=== PATIENT | male | born 1960 | race Caucasian/White ===

== ENCOUNTER 2022-06-29 07:27 | Day surgery (SDC) | payer OTHER ==
[2022-06-25 14:24] VITALS: BMI 27.8
[~2022-06-29 07:27] MED LIST: EPINEPHrine 0.3 MG in Ophthalmic Irrigation Solution 500 ML IRR SCH
[2022-06-29] MEDS ORDERED: Cyclopentolate 1% Opth Drop 2 ML BOT ONE (07:58)
[2022-06-29] MEDS ORDERED: Phenylephrine 2.5% Ophth Soln 5 ML BOT ONE (07:58)
[2022-06-29] MEDS ORDERED: Bupivacaine 0.75% 10 ML VIAL ONE (09:35)
[2022-06-29] MEDS ORDERED: Indocyanine Green 25 MG/10 ML VIAL ONE (09:35)
[2022-06-29] MEDS ORDERED: Lidocaine 1% PF 5 ML VIAL ONE (09:35)
[2022-06-29] MEDS ORDERED: CEFAZOLIN 1 GM VIAL ONE (09:35)
[2022-06-29] MEDS ORDERED: Maxitrol 0.1% Opth Oint 3.5 GM TUBE ONE (09:35)
[2022-06-29] MEDS ORDERED: PROPOFOL 200 MG/20 ML VIAL ONE (09:35)
[2022-06-29] MEDS ORDERED: Triamcinolone 40 MG/ML VIAL ONE (09:35)
[2022-06-29] MEDS ORDERED: Lidocaine 4% PF 5 ML AMP ONE (09:35)
== END 2022-06-29 10:41 | disposition home or self-care (01) ==
LOC: SDC 07:27
PROVIDERS: ATTEND Ophthalmology Retina Specialist
PROC: 08T53ZZ Resection of Left Vitreous, Percutaneous Approach (ICD-10-PCS; principal; 2022-06-29)
PROC: 08NF3ZZ Release Left Retina, Percutaneous Approach (ICD-10-PCS; principal; 2022-06-29)
DX: H35.372 Puckering of macula, left eye (principal); I10 Essential (primary) hypertension; E78.5 Hyperlipidemia, unspecified; Z86.16 Personal history of COVID-19; Z79.82 Long term (current) use of aspirin; Z79.899 Other long term (current) drug therapy; Z91.040 Latex allergy status
CPT/HCPCS: J0171; J0690; J2704; J3301; J3490